=== PATIENT | female | born 1985 | race Caucasian/White ===

== ENCOUNTER 2018-10-31 07:54 | Day surgery (SDC) | payer OTHER ==
[~2018-10-31] VITALS: Ht 162.6 cm; Wt 51.3 kg
[2018-10-31 08:25] VITALS: BP 96/57; PULSE 69; RESP 18; Ht 162.6 cm; Wt 51.3 kg
[2018-10-31] MEDS ORDERED: LIDOCAINE 4% SOLUTION 50 ML BTL ONE (08:56)
[2018-10-31] MEDS ORDERED: FENTAnyl 50 MCG/ML VIAL ONE (09:40)
[2018-10-31] MEDS ORDERED: MIDAZOLAM 1 MG/ML 2 ML INJ ONE ×2 (09:40)
[2018-10-31 10:38] VITALS: BP 97/59; RESP 20
== END 2018-10-31 11:04 | disposition home or self-care (01) ==
LOC: GIL 07:54
PROVIDERS: ATTEND Internal Medicine Gastroenterology
DX: K29.50 Unspecified chronic gastritis without bleeding (principal); D13.1 Benign neoplasm of stomach
CPT/HCPCS: 43239; 84703; J2250; J3010; Z7610